=== PATIENT | female | born 1950 | race American Indian/Alaskan Native ===

== ENCOUNTER 2016-12-23 10:40 | Outpatient (CLI) | payer MEDICARE ==
--- NOTE | 2016-12-24 08:24 | Mammography Report ---
BILATERAL DIGITAL SCREENING MAMMOGRAM with CAD : 12/23/16 10:40:00 CLINICAL: Routine screening. COMPARISON:08/22/15 and 08/22/14 FINDINGS: The breasts are heterogeneously dense, which may obscure small masses.A group of right calcifications at 12 o'clock and additional scattered calcifications in the right breast are stable. No mass, architectural distortion or suspicious calcifications. IMPRESSION: No mammographic evidence of malignancy. BI-RADS CATEGORY: 2 -- Benign RECOMMENDATION: Routine mammographic screening in one year. COMMENT: Patient follow-up letters are generated by our [employer] application.
== END 2016-12-23 10:41 | disposition home or self-care (01) ==
LOC: SPVWC 10:40
PROVIDERS: ATTEND Internal Medicine
DX: Z12.31 Encounter for screening mammogram for malignant neoplasm of breast (principal)
CPT/HCPCS: 77067; G0202

== ENCOUNTER 2017-12-24 08:25 | Outpatient (CLI) | payer MEDICARE ==
--- NOTE | 2017-12-24 13:16 | Mammography Report ---
BILATERAL DIGITAL SCREENING MAMMOGRAM WITH CAD: 12/24/17 08:25:00 CLINICAL: Routine screening. COMPARISON:12/23/16 and 08/22/15 FINDINGS: The breasts are heterogeneously dense, which may obscure small masses. A group of right upper outer calcifications requires additional imaging. The calcifications have increased in number and some of the calcifications are more dense. Additional scattered calcifications in the right breast are stable. No mass or architectural distortion. The left breast is negative. IMPRESSION: Right calcifications requiring further workup. BI-RADS CATEGORY: 0 -- Additional Imaging Evaluation Required RECOMMENDATION: Recall for right ML and CC magnification views ACR BI-RADS MAMMOGRAPHIC CODES: 0 = Needs additional imaging evaluation; 1 = Negative; 2 = Benign; 3 = Probably benign; 4 = Suspicious; 5 = Malignant; 6 = Known biopsy-proven malignancy COMMENT: 1. Dense breast tissue, i.e., adenosis, fibrocystic changes, etc., may obscure an underlying neoplasm. 2. Approximately 10% of cancers are not detected with mammography. 3. A negative mammography report should not delay biopsy if a clinically suspicious mass is present. COMMENT: Patient follow-up letters are generated via our [employer] application.
== END 2017-12-24 08:26 | disposition home or self-care (01) ==
LOC: SPVWC 08:25
PROVIDERS: ATTEND Internal Medicine
DX: Z12.31 Encounter for screening mammogram for malignant neoplasm of breast (principal)
CPT/HCPCS: 77067

== ENCOUNTER 2018-01-21 08:48 | Outpatient (CLI) | payer MEDICARE ==
--- NOTE | 2018-01-21 10:04 | Mammography Report ---
RIGHT DIGITAL DIAGNOSTIC MAMMOGRAM : 01/21/18 08:30:00 CLINICAL: Recall to evaluate calcifications. COMPARISON:12/24/17 FINDINGS: ML and ML and CC magnification views were performed. Three groups of upper calcifications have similar morphology. The largest group is the group of interest and is most cephalad group. This group overlaps with a more posterior and inferior group on the ML view.The morphology of calcifications on the current images suggest that these are probably benign calcifications with no particularly suspicious forms. No associated mass or architectural distortion. IMPRESSION: Probably benign calcifications. BI-RADS CATEGORY: 3--Probably Benign RECOMMENDATION: 6 month followup right magnification views. ACR BI-RADS MAMMOGRAPHIC CODES: 0 = Needs additional imaging evaluation; 1 = Negative; 2 = Benign; 3 = Probably benign; 4 = Suspicious; 5 = Malignant; 6 = Known biopsy-proven malignancy COMMENT: 1. Dense breast tissue, ie., adenosis, fibrocystic changes, etc., may obscure an underlying neoplasm. 2. Approximately 10% of cancers are not detected with mammography. 3. A negative mammography report should not delay biopsy if a clinically suspicious mass is present. COMMENT: Patient follow-up letters are generated via our [employer] application.
== END 2018-01-21 08:49 | disposition home or self-care (01) ==
LOC: SPVWC 08:48
PROVIDERS: ATTEND Internal Medicine
DX: N63.10 Unspecified lump in the right breast, unspecified quadrant (principal); R92.8 Other abnormal and inconclusive findings on diagnostic imaging of breast

== ENCOUNTER 2019-08-18 08:18 | Outpatient (CLI) | payer MEDICARE ==
--- NOTE | 2019-08-18 10:03 | Mammography Report ---
DIGITAL SCREENING MAMMOGRAM WITH CAD, 08/18/2019 INDICATION: Routine screening mammography. TECHNIQUE: Digital bilateral 2D mammography was obtained in the craniocaudal and mediolateral obliq ue projections. This examination was interpreted with the benefit of Computer-Aided Detection analysi s. COMPARISON: 01/21/2018, 12/24/2017 and mammograms going back to 08/19/2011. FINDINGS: Breast Density: The breasts are heterogeneously dense, which may obscure small masses. There is no evidence of dominant mass, suspicious calcifications or architectural distortion in eithe r breast. Stable bilateral calcifications with benign morphology. IMPRESSION: No mammographic evidence of malignancy. Follow up recommendation: Routine yearly BI-RADS Category 2: Benign. A "normal" or negative report should not discourage follow up or biopsy of a clinically significant f inding. A written summary of these findings will be mailed to the patient. The patient will be entered into a mammography reporting system which will generate a reminder letter for the patient's next appointmen t at the appropriate interval. The [employer] recommends yearly mammograms starting at age 40 and continuing as l yg as a woman is in good health. Breast MRI is recommended for women with an approximate 20-25% or greater lifetime risk of breast cancer, including women with a strong family history of breast or ova jhon cancer or who have been treated for Hodgkin's disease. Signer Name: Azeem Meek MD Signed: 08/18/2019 9:58 AM Workstation Name: [id number]
== END 2019-08-18 08:19 | disposition home or self-care (01) ==
LOC: SPVWC 08:18
PROVIDERS: ATTEND Internal Medicine
DX: Z12.31 Encounter for screening mammogram for malignant neoplasm of breast (principal)
CPT/HCPCS: 77067

== ENCOUNTER 2020-08-27 09:06 | Outpatient (CLI) | payer MEDICARE ==
--- NOTE | 2020-08-27 12:09 | Mammography Report ---
DIGITAL SCREENING MAMMOGRAM WITH CAD, 08/27/2020 INDICATION: Routine screening mammography. TECHNIQUE: Digital bilateral 2D mammography was obtained in the craniocaudal and mediolateral obliq ue projections. This examination was interpreted with the benefit of Computer-Aided Detection analysi s. COMPARISON: 08/18/2019. FINDINGS: Breast Density: There are scattered areas of fibroglandular density. There is no evidence of dominant mass, suspicious calcifications or architectural distortion in the l eft breast. Increasing calcifications right breast 11:00. Magnification views are recommended. IMPRESSION: Follow up recommendation: Special View: Mag BI-RADS Category 0: Incomplete. Needs additional imaging evaluation and/or prior mammograms for tone rison. A "normal" or negative report should not discourage follow up or biopsy of a clinically significant f inding. A written summary of these findings will be mailed to the patient. The patient will be entered into a mammography reporting system which will generate a reminder letter for the patient's next appointmen t at the appropriate interval. The [employer] recommends yearly mammograms starting at age 40 and continuing as l yg as a woman is in good health. Breast MRI is recommended for women with an approximate 20-25% or greater lifetime risk of breast cancer, including women with a strong family history of breast or ova jhon cancer or who have been treated for Hodgkin's disease. Signer Name: Selwyn Rosas MD Signed: 08/27/2020 12:05 PM Workstation Name: [id number]
== END 2020-08-27 09:07 | disposition home or self-care (01) ==
LOC: SPVWC 09:06
PROVIDERS: ATTEND Internal Medicine
DX: Z12.31 Encounter for screening mammogram for malignant neoplasm of breast (principal)
CPT/HCPCS: 77067

== ENCOUNTER 2020-10-23 09:44 | Outpatient (CLI) | payer MEDICARE ==
--- NOTE | 2020-10-23 10:54 | Mammography Report ---
DIGITAL DIAGNOSTIC MAMMOGRAM WITH CAD CONVENTIONAL, 10/23/2020 CLINICAL INFORMATION / INDICATION: Increasing grouped calcifications in the right breast on screening mammography. ABNORMAL MAMMO R92.8 TECHNIQUE: Digital right mammographic imaging was performed. Magnification views were obtained. This examination was interpreted with the benefit of Computer-aided Detection analysis. COMPARISON: Bilateral mammography 08/22/2015 through 08/27/2020. FINDINGS: Breast Density: There are scattered areas of fibroglandular density. There are grouped calcifications in the right upper outer quadrant at approximately the 11:00 positio n in the middle depth. The calcifications are coarse and heterogeneous. The maximum dimension is appr oximately 2.5 cm. A few other smaller groups of calcification in the right breast have not changed si nce prior studies. There is no evidence of a mass or other abnormality. IMPRESSION: 2.5 cm area of grouped calcifications in the right upper outer quadrant are suspicious an d increasing in number. Biopsy is recommended. Follow up recommendation: Biopsy BI-RADS Category 4: Suspicious for Malignancy. BI-RADS Category 4B-intermediate suspicion for maligna ncy. A "normal" or negative report should not discourage follow up or biopsy of a clinically significant f inding. A written summary of these findings will be mailed to the patient. The patient will be entered into a mammography reporting system which will generate a reminder letter for the patient's next appointmen t at the appropriate interval. According to the [employer], yearly mammograms are recommended starting at age 40 and continuing as long as a woman is in good health. Breast MRI is recommended for women with an rodolfo roximately 20-25% or greater lifetime risk of breast cancer, including women with a strong family his tory of breast or ovarian cancer and women who have been treated for Hodgkin's disease. Signer Name: Joe Ennis MD Signed: 10/23/2020 10:49 AM Workstation Name: [id number]
== END 2020-10-23 09:45 | disposition home or self-care (01) ==
LOC: SPVWC 09:44
PROVIDERS: ATTEND Internal Medicine
DX: R92.1 Mammographic calcification found on diagnostic imaging of breast (principal)